=== PATIENT | female | born 1955 | race Caucasian/White ===

== ENCOUNTER 2018-02-04 22:39 | Inpatient (IN) | payer OTHER ==
[~2018-02-04] VITALS: Ht 175.3 cm; Wt 126.0 kg
[2018-02-04 23:12] LABS: BASO % 0.3 % (0.0-2.0); EOS # 0.1 (0.0-0.7); EOS % 0.9 % (0-4.0); GRAN # 9.2 (1.4-6.5); GRAN % 78.5 % (42.2-75.2); HEMATOCRIT 38.7 % (37.0-47.0); HEMOGLOBIN 12.4 g/dl (12.5-16.0); LYMPH # 1.5 (1.2-3.4); LYMPH % 12.7 % (20.0-51.0); MEAN CELL VOLUME 92 fl (80.0-100.0); MEAN CORPUSCULAR HEMOGLOBIN 30 pg (27.0-31.0); MEAN CORPUSCULAR HGB CONC 32 g/dl (33.0-37.0); MEAN PLATELET VOLUME 10.9 fl (7.4-10.4); MONO # 0.8 (0.1-0.6); PLATELET COUNT 259 K/mm3 (130-400); RED BLOOD COUNT 4.21 M/mm3 (4.10-5.30); REDCELL DISTRIBUTION WIDTH-CV 12.8 % (11.5-14.5)
[2018-02-04 23:21] LABS: ALANINE AMINOTRANSFERASE 43 U/L (9-52); ALBUMIN 3.4 gm/dL (3.5-5.0); ALKALINE PHOSPHATASE 139 U/L (50-136); ANION GAP 12 mmol/L (7-16); AST,SGOT 22 U/L (15-37); BILIRUBIN,TOTAL 0.3 mg/dL (0.0-1.0); BLOOD UREA NITROGEN 19 mg/dL (7-17); CALCIUM 9.2 mg/dL (8.4-10.2); CARBON DIOXIDE 28 mmol/L (22-30); CHLORIDE 101 mmol/L (98-107); CREATININE, serum 0.95 mg/dL (0.52-1.25); GLUCOSE 212 mg/dL (74-106); LIPASE 140 U/L (23-300); POTASSIUM 3.6 mmol/L (3.4-5.0); SODIUM 141 mmol/L (137-145)
[2018-02-04 23:34] LABS: TROPONIN-I < 0.012 ng/mL (0.000-0.034)
[2018-02-05 00:08] LABS: PROTHROMBIN TIME 11.4 SECONDS (9.7-12.8)
[2018-02-05 00:10] LABS: PARTIAL THROMBOPLASTIN TIME 31.4 SECONDS (26.0-37.0)
[2018-02-05] MEDS ORDERED: MYSOLINE 5050 MG/TAB PO ×2 (00:12→00:19)
[2018-02-05] MEDS ORDERED: ROXICODONE 55 MG/TAB PO (00:13)
[2018-02-05] MEDS ORDERED: VITAMIND3 5000 (00:13)
[2018-02-05] MEDS ORDERED: CYMBALTA 20MG20 MG PO (00:14)
[2018-02-05] MEDS ORDERED: DIOVAN HCT 25 M1 TA1 PO (00:14)
[2018-02-05] MEDS ORDERED: LANTUS SOLOS100 U/ML (00:16)
[2018-02-05] MEDS ORDERED: NORVASC 10MG10 MG PO (00:16)
[2018-02-05] MEDS ORDERED: GLUCOPHAGE1000 MG PO (00:17)
[2018-02-05] MEDS ORDERED: LIPITOR 40MG TA40 MG PO (00:17)
[2018-02-05] MEDS ORDERED: SINGULAIR 110 MG/TAB PO (00:18)
[2018-02-05] MEDS ORDERED: PREMARIN 1.251.25 MG PO (00:18)
[2018-02-05] MEDS ORDERED: FLOVENT 110MCG7.9 GM IH (00:19)
[2018-02-05] MEDS ORDERED: PROAIR HFA0.09 MG/AC IH (00:20)
[2018-02-05 02:54] VITALS: BP 149/87; PULSE 82; TEMP 97.1
[2018-02-05] MEDS ORDERED: GLUCOTROL10 MG PO (03:09)
[2018-02-05] MEDS ORDERED: PROVERA 10MG10 MG PO (03:12)
[2018-02-05] MEDS ORDERED: ALEVE 220MG220 MG PO (03:19)
[2018-02-05] MEDS ORDERED: METHAVER 109 M1 EACH PO (03:21)
[2018-02-05 04:53] LABS: CHOLESTEROL RISK RATIO 3.8; MAGNESIUM 1.5 mg/dL (1.6-2.3)
[2018-02-05 07:26] LABS: BASO # 0.1 (0.0-0.2); BASO % 0.6 % (0.0-2.0); EOS # 0.1 (0.0-0.7); GRAN # 5.6 (1.4-6.5); GRAN % 63.9 % (42.2-75.2); HEMATOCRIT 37.2 % (37.0-47.0); HEMOGLOBIN 11.9 g/dl (12.5-16.0); LYMPH # 2.2 (1.2-3.4); LYMPH % 25.3 % (20.0-51.0); MEAN CELL VOLUME 94 fl (80.0-100.0); MEAN CORPUSCULAR HEMOGLOBIN 30 pg (27.0-31.0); MEAN CORPUSCULAR HGB CONC 32 g/dl (33.0-37.0); MEAN PLATELET VOLUME 11.2 fl (7.4-10.4); MONO # 0.8 (0.1-0.6); MONO % 8.7 % (1.7-9.3); PLATELET COUNT 247 K/mm3 (130-400); RED BLOOD COUNT 3.98 M/mm3 (4.10-5.30); REDCELL DISTRIBUTION WIDTH-CV 12.8 % (11.5-14.5)
[2018-02-05 07:33] LABS: ALBUMIN 3.2 gm/dL (3.5-5.0); BILIRUBIN,TOTAL 0.2 mg/dL (0.0-1.0); CALCIUM 9.1 mg/dL (8.4-10.2); CREATININE, serum 0.8 mg/dL (0.52-1.25); POTASSIUM 3.7 mmol/L (3.4-5.0); TOTAL PROTEIN 6.6 gm/dL (6.4-8.2)
[2018-02-05 08:05] LABS: COLLECTION METHOD CLEAN CATCH
[2018-02-05 08:12] LABS: MUCOUS Present /lpf; PH 5 (5-8); SQUAMOUS EPITHELIAL 0-2 /hpf; URINE APPEARANCE Hazy; URINE BACTERIA None Seen /hpf; URINE BILIRUBIN Negative (NEGATIVE); URINE BLOOD Negative (NEGATIVE); URINE COLOR Yellow; URINE GLUCOSE Negative (NEGATIVE); URINE KETONE Negative (NEGATIVE); URINE LEUKOCYTE ESTERASE Negative (NEGATIVE); URINE NITRATE Negative (NEGATIVE); URINE PROTEIN(semi-quant) Negative (NEGATIVE); URINE RBC 0-2 /hpf; URINE UROBILINOGEN Negative (NEGATIVE)
[2018-02-05 08:35] VITALS: BP 125/72; PULSE 71; TEMP 97.6
[2018-02-05 11:47] VITALS: BP 131/74; PULSE 72; TEMP 98.8
[2018-02-05] MEDS ORDERED: PHENTERMINE PO (13:21)
[2018-02-05 15:03] VITALS: BP 122/62; PULSE 80; TEMP 98.4
[2018-02-05 19:33] VITALS: BP 117/59; PULSE 76; TEMP 97.7
[2018-02-05 23:49] VITALS: BP 131/63; PULSE 67; TEMP 97.9
[2018-02-06 03:29] VITALS: BP 121/62; PULSE 65; TEMP 97.9
[2018-02-06 07:14] LABS: BASO % 0.5 % (0.0-2.0); EOS # 0.1 (0.0-0.7); EOS % 2.2 % (0-4.0); GRAN # 3.6 (1.4-6.5); GRAN % 55.3 % (42.2-75.2); HEMATOCRIT 38.2 % (37.0-47.0); HEMOGLOBIN 12.3 g/dl (12.5-16.0); LYMPH # 2.2 (1.2-3.4); LYMPH % 33.3 % (20.0-51.0); MEAN CELL VOLUME 93 fl (80.0-100.0); MEAN CORPUSCULAR HEMOGLOBIN 30 pg (27.0-31.0); MEAN CORPUSCULAR HGB CONC 32 g/dl (33.0-37.0); MEAN PLATELET VOLUME 10.9 fl (7.4-10.4); MONO # 0.5 (0.1-0.6); MONO % 8.4 % (1.7-9.3); PLATELET COUNT 244 K/mm3 (130-400); REDCELL DISTRIBUTION WIDTH-CV 12.9 % (11.5-14.5)
[2018-02-06 07:27] LABS: CALCIUM 9.4 mg/dL (8.4-10.2); CREATININE, serum 0.78 mg/dL (0.52-1.25); POTASSIUM 3.5 mmol/L (3.4-5.0)
[2018-02-06 07:41] VITALS: BP 114/60; PULSE 67; TEMP 98
[2018-02-06 12:21] VITALS: BP 136/84; PULSE 72; TEMP 98.1
[2018-02-06 15:25] LABS: INR 1.1 (0.8-3.0); PROTHROMBIN TIME 12.2 SECONDS (9.7-12.8)
[2018-02-06 15:28] LABS: PARTIAL THROMBOPLASTIN TIME 32.8 SECONDS (26.0-37.0)
[2018-02-06 17:08] VITALS: BP 130/65; PULSE 72; TEMP 98.6
[2018-02-06 19:47] VITALS: BP 122/72; PULSE 75; TEMP 98.3
[2018-02-06 22:11] LABS: HEMATOCRIT 39.7 % (37.0-47.0); HEMOGLOBIN 12.9 g/dl (12.5-16.0); MEAN CELL VOLUME 93 fl (80.0-100.0); MEAN CORPUSCULAR HEMOGLOBIN 30 pg (27.0-31.0); MEAN CORPUSCULAR HGB CONC 33 g/dl (33.0-37.0); MEAN PLATELET VOLUME 10.7 fl (7.4-10.4); PLATELET COUNT 276 K/mm3 (130-400); RED BLOOD COUNT 4.26 M/mm3 (4.10-5.30); REDCELL DISTRIBUTION WIDTH-CV 12.8 % (11.5-14.5)
[2018-02-06 22:24] LABS: CALCIUM 9.5 mg/dL (8.4-10.2); CREATININE, serum 0.86 mg/dL (0.52-1.25); POTASSIUM 3.5 mmol/L (3.4-5.0)
[2018-02-06 23:49] VITALS: BP 136/77; PULSE 65; TEMP 98.3
[2018-02-07] VITALS (14 sets, daily range): BP systolic 110–153; BP diastolic 50–90; PULSE 52–75; TEMP 97.6–98.7
[2018-02-07 06:25] LABS: BASO # 0.1 (0.0-0.2); BASO % 0.6 % (0.0-2.0); EOS # 0.2 (0.0-0.7); EOS % 2.2 % (0-4.0); GRAN # 5.2 (1.4-6.5); GRAN % 61.3 % (42.2-75.2); HEMATOCRIT 39.8 % (37.0-47.0); HEMOGLOBIN 12.7 g/dl (12.5-16.0); LYMPH # 2.2 (1.2-3.4); LYMPH % 25.9 % (20.0-51.0); MEAN CELL VOLUME 94 fl (80.0-100.0); MEAN CORPUSCULAR HEMOGLOBIN 30 pg (27.0-31.0); MEAN CORPUSCULAR HGB CONC 32 g/dl (33.0-37.0); MEAN PLATELET VOLUME 10.7 fl (7.4-10.4); MONO # 0.8 (0.1-0.6); MONO % 9.6 % (1.7-9.3); PLATELET COUNT 268 K/mm3 (130-400); RED BLOOD COUNT 4.23 M/mm3 (4.10-5.30); REDCELL DISTRIBUTION WIDTH-CV 12.7 % (11.5-14.5)
[2018-02-07 06:36] LABS: CALCIUM 9.6 mg/dL (8.4-10.2); CREATININE, serum 0.89 mg/dL (0.52-1.25); POTASSIUM 3.8 mmol/L (3.4-5.0)
[2018-02-08 04:18] VITALS: BP 126/63; PULSE 64; TEMP 97.9
[2018-02-08 07:33] LABS: BASO % 0.5 % (0.0-2.0); EOS # 0.2 (0.0-0.7); EOS % 2.1 % (0-4.0); GRAN # 4.7 (1.4-6.5); HEMATOCRIT 39.2 % (37.0-47.0); HEMOGLOBIN 12.7 g/dl (12.5-16.0); LYMPH % 26.1 % (20.0-51.0); MEAN CELL VOLUME 93 fl (80.0-100.0); MEAN CORPUSCULAR HEMOGLOBIN 30 pg (27.0-31.0); MEAN CORPUSCULAR HGB CONC 32 g/dl (33.0-37.0); MEAN PLATELET VOLUME 11.2 fl (7.4-10.4); MONO # 0.8 (0.1-0.6); PLATELET COUNT 237 K/mm3 (130-400); REDCELL DISTRIBUTION WIDTH-CV 12.9 % (11.5-14.5)
[2018-02-08 08:47] LABS: CALCIUM 9.5 mg/dL (8.4-10.2); CREATININE, serum 0.88 mg/dL (0.52-1.25); POTASSIUM 3.6 mmol/L (3.4-5.0)
[2018-02-08] MEDS ORDERED: LIPITOR 40MG TA40 MG PO (09:04)
[2018-02-08] MEDS ORDERED: NITROSTAT0.4 MG/TAB SL (09:05)
[2018-02-08] MEDS ORDERED: TOPROL XL 50MG50 MG PO (09:05)
[2018-02-08] MEDS ORDERED: ASPIRIN 81M81 MG/TA2 PO (09:05)
[2018-02-08] MEDS ORDERED: MYSOLINE 5050 MG/TAB PO (09:06)
[2018-02-08 09:09] VITALS: BP 133/78; PULSE 71; TEMP 98.1
[2018-02-08] MEDS ORDERED: DIOVAN HCT 25 M1 TA1 PO (09:09)
[2018-02-08] MEDS ORDERED: PROTONIX 40MG T40 MG PO (09:10)
[2018-02-08] MEDS ORDERED: LEVEMIR100 U/ML SQ (09:11)
[2018-02-08] MEDS ORDERED: GLUCOTROL10 MG PO (09:24)
[2018-02-08] MEDS ORDERED: GLUCOPHAGE1000 MG PO (09:24)
[2018-02-08] MEDS ORDERED: ASPIRIN 32325 MG/TAB PO (10:14)
[2018-02-08 11:58] VITALS: BP 122/36; PULSE 69; TEMP 97.6
== END 2018-02-08 12:45 | disposition home or self-care (01) | DRG 287 ==
LOC: COL.ER 22:39 → MEDICAL 02-05 02:19
PROVIDERS: Emergency Medicine; Family Medicine; Internal Medicine Interventional Cardiology; Nurse Practitioner Family; Physician Assistant
PROC: B2111ZZ Fluoroscopy of Multiple Coronary Arteries using Low Osmolar Contrast (ICD-10-PCS; principal; 2018-02-07)
PROC: B2151ZZ Fluoroscopy of Left Heart using Low Osmolar Contrast (ICD-10-PCS; 2018-02-07)
DX: I25.10 Atherosclerotic heart disease of native coronary artery without angina pectoris (principal); Z68.41 Body mass index [BMI] 40.0-44.9, adult; Z66 Do not resuscitate; I10 Essential (primary) hypertension; E11.9 Type 2 diabetes mellitus without complications; I71.2 Thoracic aortic aneurysm, without rupture; E66.9 Obesity, unspecified; G25.0 Essential tremor; Z79.4 Long term (current) use of insulin
CPT/HCPCS: 99222-AI; 99232-AI; G0378; J1815; J2250; J2405; J3010; J7030; Q9967